=== PATIENT | male | born 1970 | race Caucasian/White ===

== ENCOUNTER 2025-05-25 07:16 | Inpatient (IN) | payer BC ==
[~2025-05-25] VITALS: Ht 177.8 cm; Wt 98.3 kg
--- NOTE | 2025-05-25 07:55 | Physician Documentation ---
History of Present Illness General Chief Complaint: Post-operative complication Stated Complaint: POST OP COMPLICATIONS Time Seen by MD: 07:32 History of Present Illness Initial Comments The patient is a 54-year-old male with no significant past medical history who underwent an umbilical herniorrhaphy two days ago performed by Dr. Dixon. Since that time he has not had a bowel movement in his not passed any gas. His last meal was 6:00 p.m. yesterday. Beginning around 11:00 p.m. he began vomiting and has vomited several times throughout the night. He has crampy abdominal pain, as well. He did have his appendix removed in his 20s. Medication Reconciliation Allergies: Coded Allergies: NSAIDS (Non-Steroidal Anti-Inflamma (Unverified Allergy, Severe, 05/25/25) LIP SWELLING AND HIVES Review of Systems ROS Constitutional: Denies chills, fatigue, fever, weight gain or weight loss. HEENT: Denies hearing loss, sinus pressure or visual changes. Respiratory: Denies cough, shortness of breath or wheezing. Cardiovascular: Denies chest pain, pain while walking (claudication), edema or palpitations. Gastrointestinal: Abdominal pain. Has not passed stool or gas since the surgery. Genitourinary: Denies painful urination (dysuria), excessive amount of urine (polyuria) or urinary frequency. Metabolic/Endocrine: Denies cold intolerance, heat intolerance, excessive thirst (polydipsia) or excessive hunger (polyphagia). Neurological: Denies dizziness, extremity numbness, extremity weakness, headaches, seizures or tremors. Psychiatric: Denies anxiety or depression. Integumentary: Denies breast discharge, breast lump, hives, mole change(s), rash or skin lesion. Musculoskeletal: Denies back pain, joint pain, joint swelling or neck pain. Hematologic: Denies easily bleeding, easily bruises, lymphedema or issues with blood clots. Immunologic: Denies food allergies or seasonal allergies. Physical Exam Physical Exam Vital Signs: Temperature: 98.7, Source: Temporal, Heart Rate: 84, Respiratory Rate: 18, BP: 140/83, Pulse Oximetry: 97, Weight: 98.350 Oxygen Flow Rate: 0 Physical Exam Physical Exam Vitals and nursing note reviewed. Constitutional: General: Patient is awake, alert, oriented x 4 in no acute distress and well appearing. Speech is clear and lucid. Appearance: Normal appearance. Patient is not ill-appearing, toxic-appearing or diaphoretic. HENT: Head: Normocephalic and atraumatic. Mouth/Throat: Mouth: Mucous membranes are moist. Pharynx: Oropharynx is clear. Eyes: General: No scleral icterus. Extraocular Movements: Extraocular movements intact. Pupils: Pupils are equal, round, and reactive to light. Neck: Supple, no Kernig or Brudzinski sign. Cardiovascular: Rate and Rhythm: Normal rate and regular rhythm. Heart sounds: No murmur heard. Pulmonary: Effort: No respiratory distress. Breath sounds: No wheezing, rhonchi or rales. Abdominal: General: There is no distension. Palpations: There is no fluid wave, hepatomegaly or mass. Tenderness: Mild generalized abdominal tenderness. There is no guarding. Musculoskeletal: General: No swelling or deformity. Skin: Coloration: Skin is not jaundiced. Findings: No erythema or rash. Neurological: Mental Status: Patient is alert. Progress Results/Orders Results/Orders Orders - JAMIL VARELA MD Ct Abdomen Pelvis (05/25/25 08:57) Page Hospitalist (05/25/25 11:07) Normal Saline 1000ml (0.9% Sodium Chlori (05/25/25 11:10) Completed Orders - JAMIL VARELA MD Cbc/Diff (05/25/25 07:25) Lipase (05/25/25 07:25) CMP (05/25/25 07:25) Procalcitonin (05/25/25 07:32) Ct Abdomen Pelvis (05/25/25 08:57) Iohexol 300mg/Ml 100ml Inj. (Omnipaque-3 (05/25/25 08:18) Ua W/Microscopic, Cult If Ind (05/25/25 08:20) Ondansetron Inj. (Zofran 4mg/2ml Vial) (05/25/25 08:50) Hydromorphone 0.5 Mg/0.5 Ml/Pf (Dilaudid (05/25/25 08:50) Medications Received in ER Medications (Trade) Dose Ordered Sig/Lida Route PRN Reason Start Time Stop Time Status Last Admin Dose Admin (Zofran 4mg/2ml vial) 4 mg ONCE ONCE IV 05/25/25 08:50 05/25/25 08:51 DC 05/25/25 08:56 4 MG (Dilaudid inj.) 0.5 mg ONCE ONCE IV 05/25/25 08:50 05/25/25 08:51 DC 05/25/25 08:56 0.5 MG Sodium Chloride 1,000 ml @ 150 mls/hr [id number] IV 05/25/25 11:10 05/25/25 11:35 150 MLS/HR Vital Signs 05/25/25 05/25/25 05/25/25 05/25/25 07:22 08:03 08:30 09:33 Temp 98.7 98.7 98.7 Pulse 84 74 68 Resp 18 16 16 B/P (MAP) 140/83 155/89 (111) 137/81 (99) Pulse Ox 97 97 95 O2 Flow Rate 0 0 0 05/25/25 05/25/25 05/25/25 10:25 10:25 11:43 Temp 98.7 98.7 98.7 Pulse 72 72 78 Resp 16 16 18 B/P (MAP) 139/83 (101) 139/83 (101) 144/91 (108) Pulse Ox 98 95 95 O2 Flow Rate 0 0 0 Laboratory Tests Test 05/25/25 08:03 05/25/25 08:20 White Blood Count 9.5 Red Blood Count 5.08 Hemoglobin 15.4 Hematocrit 45.4 Mean Corpuscular Volume 89.4 Mean Corpuscular Hemoglobin 30.3 Mean Corpuscular Hemoglobin Concent 33.9 Red Cell Distribution Width 13.4 Platelet Count 252 Mean Platelet Volume 8.7 Neutrophils (%) (Auto) 77.0 H Lymphocytes (%) (Auto) 17.6 L Monocytes (%) (Auto) 4.4 Eosinophils (%) (Auto) 0.7 Basophils (%) (Auto) 0.3 Neutrophils # (Auto) 7.3 Lymphocytes # (Auto) 1.7 Monocytes # (Auto) 0.4 Eosinophils # (Auto) 0.1 Basophils # (Auto) 0.0 CBC Comment Sodium Level 137 Potassium Level 3.6 Chloride Level 101 Carbon Dioxide Level 28.0 Anion Gap 8 Blood Urea Nitrogen 24 H Creatinine 0.99 Estimated GFR/1.73 m2 78 BUN/Creatinine Ratio 24.2 H Glucose Level 145 H Calcium Level 8.9 Total Bilirubin 0.5 Aspartate Amino Transf (AST/SGOT) 15 Alanine Aminotransferase (ALT/SGPT) 24 Alkaline Phosphatase 63 Total Protein 7.5 Albumin 4.1 Globulin 3.4 Albumin/Globulin Ratio 1.2 Lipase 23 Procalcitonin < 0.05 Chemistry Comments Urine Specimen Description Voided Urine Color Yellow Urine Clarity Clear Urine pH 5.5 Urine Specific [place] >=1.030 Urine Protein Trace Urine Glucose (UA) Negative Urine Ketones Negative Urine Occult Blood Negative Urine Nitrite Negative Urine Bilirubin Negative Urine Urobilinogen 0.2 Urine Leukocyte Esterase Negative Urine RBC 0-2 Urine WBC 0-4 Urine Squamous Epithelial Cells Few Urine Calcium Oxalate Crystals 3+ Urine Bacteria Few Urine Coarse Granular Casts 0-3 Urine Mucus Moderate Urine Culture Indicated Not ind Volume Urine Centrifuged 10 ml Urine Comment Medical Decision Making Findings This 54-year-old man presented two days after periumbilical herniorrhaphy with abdominal pain/bloating with nausea and vomiting. Findings on CT scan are consistent with ileus. The stomach itself is decompressed. I reviewed this with Dr. Dixon (11:00 a.m.) and we concluded that an NG tube is not needed at the present time. I am going to start maintenance fluids and get him admitted. Departure Disposition: ADMITTED INPATIENT Admitted to Inpatient Unit: to hospitalist Admission Level of Care: Med/Surg Impression: Primary Impression: Postoperative ileus Condition: Stable Referrals: NO PRIMARY CARE PROVIDER (PCP) Signature Scribe Signature: . Attestation: JAMIL GARZA MD May 25, 2025 07:55
[2025-05-25 08:17] LABS: MEAN PLATELET VOLUME 8.7 FL (7.4-10.4); RED CELL DISTRIBUTION WIDTH 13.4 % (11.5-14.5)
[2025-05-25] MEDS ORDERED: iohexol 300mg/ml 100ml inj. ONE (08:18)
[2025-05-25 08:36] LABS: CREATININE 0.99 MG/DL (0.60-1.10); TOTAL CARBON DIOXIDE 28.0 MMOL/L (24-32); eCRCL 86 ML/MIN; eGFR 78 ML/MIN
[2025-05-25 08:39] LABS: LEUKOCYTE ESTERASE ,URINE NEGATIVE (Neg); NITRITES, URINE NEGATIVE (Neg); OCCULT BLOOD,URINE NEGATIVE (Neg)
[2025-05-25 08:45] LABS: UA COLLECTION TYPE VOIDED
[2025-05-25 08:47] LABS: MUCUS STRANDS MODERATE /LPF (Neg)
[2025-05-25 08:50] LABS: SQUAMOUS EPITHELIAL CELL,UR FEW /LPF (FEW)
[2025-05-25 08:51] LABS: CAL OXALATE CRYSTALS 3+ /HPF (NEGATIVE); COARSE GRANULAR CAST 0-3 /LPF (NEGATIVE)
[2025-05-25] MEDS: HYDROmorphone inj. 0.5 MG/0.5 ML DISP.SYRIN IV ONE (08:56)
[2025-05-25] MEDS: ondansetron/PF 4mg/2ml inj IV ONE (08:56)
--- NOTE | 2025-05-25 09:39 | RADIOLOGY REPORT ---
CLINICAL INFORMATION: Small-bowel obstruction. TECHNIQUE: Axial CT images of the abdomen and pelvis were obtained after the uneventful administration of 100 mL Omnipaque 300 IV contrast. Coronal and sagittal reformatted images were obtained, reviewed, and stored. All CT scans at this medical facility are performed using dose modulation techniques as appropriate to a performed exam including the following: Automated exposure control was utilized; adjustment of the MA and/or KV according to patient size; and use of iterative reconstruction technique. CTDIvol = 35.03 mGy DLP = 2115.23 mGy-cm COMPARISON: None FINDINGS: Lung bases: Atelectasis in the lower lobes bilaterally. Liver: Unremarkable. No abnormal density or focal lesion. Biliary: No calcified gallstones or biliary ductal dilatation. Spleen: Low-density lesion with peripheral enhancement in the posterior spleen measures up to 1.3 cm in greatest dimension, possible hemangioma, although not well characterized on this single phase of contrast. Pancreas: Unremarkable. No inflammatory changes, ductal dilatation, or mass identified. Adrenal glands: Unremarkable. No mass. Kidneys: 2.1 cm cyst in the upper pole of the right kidney. Aorta/Vascular: Scattered mild atherosclerotic calcification. No abdominal aortic aneurysm. Retroperitoneum: No mass or lymphadenopathy. Bowel/mesentery: Nonspecific nondilated fluid-filled small bowel loops. No small bowel obstruction. Appendix is not visualized. There is moderate distention of the colon with moderate to large amount of stool in the cecum and ascending colon and gaseous distention of the transverse colon, with liquid stool in the rectosigmoid colon. No evidence of mechanical colonic obstruction. Pelvic organs: Grossly unremarkable. Bladder: Grossly unremarkable. Abdominal wall: There are small locules of gas in the ventral abdominal wall near the level of the umbilicus and small locule of gas deep to the superficial fascia of the ventral abdominal wall near the level of the umbilicus, may be sequelae of recent intervention or trauma in this location. Mild stranding near the umbilicus. No free air elsewhere in the abdomen or pelvis. Bones: No acute fracture or focal intraosseous lesion. IMPRESSION: 1. Locules of gas in the ventral abdominal wall near the umbilicus with tiny locule of gas deep to the ventral abdominal wall, may be sequelae of recent intervention or trauma. Correlate with clinical findings and recent surgical history. 2. Nonspecific nondilated fluid-filled small bowel loops. Possible ileus or enteritis in the appropriate clinical setting. No small bowel obstruction. 3. Colonic distention with moderate to large amount of stool in the cecum and ascending colon, gaseous distention of the transverse colon, and liquid stool in the rectosigmoid colon, possibly due to ileus. No findings are seen to suggest mechanical obstruction. 4. Probable hemangioma in the spleen. Not optimally evaluated on this single phase of contrast. Correlate with clinical findings. If clinically indicated, nonemergent MRI could be considered.
[2025-05-25] MEDS: normal saline 1000ml 1,000 ML IV SCH ×2 (11:35→19:18)
[2025-05-25] MEDS ORDERED: magnesium sulf-water 4G/100mL 100 ML IV PRN (17:10)
[2025-05-25] MEDS ORDERED: potassium Cl 40MEQ/1/2NS 520ml 520 ML IV PRN (17:10)
[2025-05-25] MEDS ORDERED: magnesium sulf-water 2g/50mL 50 ML IV PRN (17:10)
[2025-05-25] MEDS ORDERED: mag hydrox/Alum hydrox/simeth 30ml oral suspension PO PRN (17:10)
[2025-05-25] MEDS ORDERED: potassium Cl 20 mEq SR tablet PO PRN ×2 (17:10)
[2025-05-25] MEDS ORDERED: magnesium Cl slow-release 64mg tablet PO PRN (17:10)
--- NOTE | 2025-05-25 18:34 | HISTORY AND PHYSICAL-Residence ---
History & Physical Providers to CC Resident Creating Document: KUNAL CORLEY, RES CC: NANCY RODRÍGUEZ MD ~ History of Present Illness Reason for Admit\Complaint: Abdominal distention, nausea vomitus History of Present Illness A 54-year-old male with recent history of umbilical hernia repair two days ago at [facility] with Dr. Dixon presented to the ED after review with Dr. Dixon about vomitings, abdominal distention and unable to pass bowel movement. Patient underwent umbilical hernia repair on Wednesday and was discharged the same day. Patient was fine on Wednesday and was able to rest with pain medications (Percocet) every 4-5 hours that day. The next day on , patient's abdomen was more bloated started to have worst heartburn, did not have a bowel movement. Patient took MiraLax that did not work. Patient did not have appetite and ate very little, started to vomitings the entire day multiple episodes greenish yellow liquid. Patient took Dulcolax which did not work as well. Patient was awake all night with episodes of vomitings and abdominal cramps. Abdominal pain was cramping in type, 10/10 in severity, umbilical in location, nonradiating, relieved with pain medications. Patient was not passing flatus since the time of surgery. Patient also had three enemas done at home that did not work. Patient's called Dr. Dixon this morning who recommended to come back to the ER. Colonoscopy done about 1 or 2 years ago was completely normal. Patient had excessive belching and dizziness. In the ER, patient had two watery bowel movements in started to pass flatus. Allergies: Coded Allergies: NSAIDS (Non-Steroidal Anti-Inflamma (Unverified Allergy, Severe, 05/25/25) LIP SWELLING AND HIVES Past Medical History Past Medical History None Past Surgical History Surgical History Comment Appendectomy Past Social History Social History Comment Lives at home with family Primary care: Celestina stanton Surgeon: Dr. Dixon Drinks beer occasionally, denies smoking, marijuana or illicit drugs Works as printing bindery assistant public work director for the [employer] ROS Constitutional: No fever, chills, dizziness, weight gain or loss Eyes: No pain, erythema, discharge, blurring of vision ENT: No sore throat, epistaxis, tinnitus Cardiovascular: No Shortness of breath. Chest pressure, chest discomfort, palpitations, syncope, lower extremity edema, paroxysmal nocturnal dyspnea Respiratory: No Shortness of breath and cough present, No hemoptysis Gastrointestinal: Nausea vomitings, abdominal distention, loss of appetite Musculoskeletal: No edema Integumentary: No change in skin, hair, nails. No swelling, bruising, abrasions Neurologic: No headache, neck pain, numbness or tingling of the extremities, weakness Psychiatric: No delusions, depression, loss of interest in normal activity or change in sleep pattern, hallucinations, suicidal ideations Endocrine: No fatigue, weakness, polydipsia, polyuria, change in appetite, heat or cold intolerance, sweating, dry skin Exam Vitals: Vital Signs Date Time Temp Pulse Resp B/P (MAP) Pulse Ox O2 Delivery O2 Flow Rate FiO2 05/25/25 16:10 98.7 72 16 149/86 (107) 95 0 General: General: Moderately obese middle-aged man, Alert, awake, oriented, not in acute distress HEENT: PERRLA, no icterus, pallor, lymphadenopathy, carotid bruit Respiratory system: Bilateral vesicular breath sounds heard, no adventitious breath sounds CVS: S1-S2 heard, no murmurs/rubs/gallop GI: Generalized tenderness, surgical incision intact with no infection/erythema, present in surgical dressing. Soft, no organomegaly, no guarding/rigidity, bowel sounds present Neuro: No focal neurological deficits present Extremities: No edema cyanosis clubbing/deformities Skin: Warm and dry Diagnostic Data Last Recorded Lab Results: 05/25/25 0803 05/25/25 0803 Advance Care Planning Advanced Care plannin - 30 Minutes (I spent 20 minutes discussing various resuscitative measures and the patient decided to be full code) Additional Plan Assessment: 54-year-old male with recent history of umbilical hernia repair done two days ago at [facility] presented to the ED in view of abdominal distention, nausea and vomitings. Patient is admitted for the evaluation management of postop ileus. Plan: Postoperative ileus Umbilical hernia repair on 05/23/2025 CT abdomen: Locules of gas in the ventral abdominal wall near the umbilicus with tiny locule of gas deep to the ventral abdominal wall, may be sequelae of recent intervention. Nonspecific nondilated fluid-filled small bowel loops. Possible ileus or enteritis in the appropriate clinical setting. No small bowel obstruction.Colonic distention with moderate to large amount of stool in the cecum and ascending colon, gaseous distention of the transverse colon, and liquid stool in the rectosigmoid colon, possibly due to ileus. IV fluids at 150 cc/hour Dr. Dixon consulted, awaiting recommendations. Does not require NG tube per the surgeon. Appreciate recommendations IV Zofran p.r.n. for nausea and vomiting Management per the surgeon NPO Incidental possible spleen hemangioma Asymptomatic Outpatient follow up Code status: Full code Diet: NPO DVT prophylaxis: SCD Disposition: Admit to ortho, follow up with Dr. Dixon's recommendations Kunal Corley MD Internal Medicine, PGY 2 Date of Service: May 25, 2025 Billing Provider: NANCY RODRÍGUEZ MD, SIVA, RES May 25, 2025 18:34
[2025-05-25] MEDS: acetaminophen 1,000mg/100ml IV 100 ML IV ONE (19:18)
[2025-05-25] MEDS: ondansetron/PF 4mg/2ml inj IV PRN (19:18)
[2025-05-25] MEDS: docusate sod 100mg capsule PO SCH (19:26)
[2025-05-25] MEDS: K and/or MAG REPLACEMENT MC SCH (19:27)
--- NOTE | 2025-05-25 21:46 | PROGRESS NOTE ---
Progress Note Dictate Providers to CC CC: NIESHA BOLIVAR MD ~ Progress Note: Subsequent surgical care on a 54-year-old gentleman who is postoperative day 2. Status post robotic assisted, laparoscopic umbilical hernia repair with mesh This was performed at He presented to the emergency room this morning, obstipated with a concerned for possible small-bowel obstruction CT scan was more consistent with ileus and no obstructive pattern was noted Recommendations: -continue monitoring for progression or resolution of ileus Maintain NPO except sips and ice chips until passing gas Mesh encourage ambulation (patient currently walking laps at this moment) Aggressively avoid narcotics prioritizing non opioid analgesics such as Tylenol Continue supportive care with IV fluids and electrolyte corrections as indicated Appreciate assistance in the management of this patient by the medical service Antibiotic Ordered?: No Objective Vitals Vital Signs Date Time Temp Pulse Resp B/P (MAP) Pulse Ox O2 Delivery O2 Flow Rate FiO2 05/25/25 16:10 98.7 72 16 149/86 (107) 95 0 Lab Results: 05/25/25 0803 05/25/25 0803 NIESHA BOLIVAR MD May 25, 2025 21:46
[2025-05-25 22:00] VITALS: BP 147/78; PULSE 73; RESP 20; TEMP 97.8; O2SAT 98
[2025-05-25] MEDS: methylnaltrexone br 12mg/0.6ml inj***SubQ only SQ ONE (22:02)
[2025-05-26] MEDS: acetaminophen 1,000mg/100ml IV 100 ML IV ONE (04:19)
[2025-05-26 05:58] LABS: MEAN PLATELET VOLUME 8.4 FL (7.4-10.4); RED CELL DISTRIBUTION WIDTH 13.3 % (11.5-14.5)
[2025-05-26 06:00] VITALS: BP 127/85; PULSE 63; RESP 20; TEMP 97.5; O2SAT 96
[2025-05-26 06:17] LABS: CREATININE 1.11 MG/DL (0.60-1.10); TOTAL CARBON DIOXIDE 28.5 MMOL/L (24-32); eCRCL 77 ML/MIN; eGFR 69 ML/MIN
[2025-05-26 08:00] VITALS: RESP 18; O2SAT 99
[2025-05-26 10:00] VITALS: BP 110/70; PULSE 61; RESP 16; TEMP 97.2; O2SAT 95
[2025-05-26] MEDS: normal saline 1000ml 1,000 ML IV SCH (11:05)
--- NOTE | 2025-05-26 13:44 | PROGRESS NOTE ---
Progress Note ID Providers to CC ~ Progress Note Progress Note: complains of fullness/vss/abd-distended a/p 1. postop ileus/add ARIA Lemus MD May 26, 2025 13:44
[2025-05-26] MEDS: metoclopramide 5 mg/ml inj IV SCH (14:28)
[2025-05-26] MEDS: acetaminophen 1,000mg/100ml IV 100 ML IV PRN (14:44)
[2025-05-26 18:00] VITALS: BP 115/74; PULSE 60; RESP 18; TEMP 97.4; O2SAT 95
[2025-05-26] MEDS: magnesium hydroxide 30ml (MOM) UD suspension PO PRN (19:37)
--- NOTE | 2025-05-26 19:39 | PROGRESS NOTE- Residence ---
Progress Note - Resident Providers to CC Resident Creating Document: JENNIFER GARCIA RES ~ Antibiotic Timeout Antibiotic Ordered?: No Subjective Patient seen and examined today. He is comfortably resting in the bed. He had a bowel movement yesterday and stated that he was passing gas yesterday. Did not have any bowel movement today. Full liquid diet was started by the surgeon but he complained of abdominal pain when he tried to drink. No other concerns Objective Vital Signs Date Time Temp Pulse Resp B/P (MAP) Pulse Ox O2 Delivery O2 Flow Rate FiO2 05/26/25 10:00 97.2 61 16 110/70 (83) 95 Room Air 05/25/25 16:10 0 Result Diagram: 05/26/25 0510 05/26/25 0510 General: Alert and oriented x 4 HEENT: Normocephalic and atraumatic. Pupils equal round and reactive to light and accommodation. Extraocular movements intact. Oral and nasal mucosa moist Neck: Trachea is in midline. No masses or JVD Lungs: Bilateral normal breath sounds. No crackles, rhonchi or wheezes Heart: Regular rate and rhythm. S1-S2 normal. No rubs or murmurs Abdomen: Dressing in place in the umbilical region and left lumbar region. Soft, and [id number] distended. Nontender. Normoactive bowel sounds SEARCH ENGINE OPTIMIZER: No gross sensory or motor abnormalities Extremities: No cyanosis, clubbing or edema Skin: Warm and dry Assessment Assessment 54-year-old male with recent history of umbilical hernia repair done two days ago at [facility] presented to the ED in view of abdominal distention, nausea and vomitings. Patient is admitted for the evaluation management of postop ileus. Plan Plan Postoperative ileus Umbilical hernia repair on 05/23/2025 CT abdomen: Locules of gas in the ventral abdominal wall near the umbilicus with tiny locule of gas deep to the ventral abdominal wall, may be sequelae of recent intervention. Nonspecific nondilated fluid-filled small bowel loops. Possible ileus or enteritis in the appropriate clinical setting. No small bowel obstruction.Colonic distention with moderate to large amount of stool in the cecum and ascending colon, gaseous distention of the transverse colon, and liquid stool in the rectosigmoid colon, possibly due to ileus. Mentioned that he took [place] 5/325 mg 4 times a day after the surgery Surgeon did not recommend any NG tube Received Relistor yesterday and had a bowel movement Started by Reglan 10 mg IV q.6h by the surgeon IV Zofran p.r.n. for nausea and vomiting Management per the surgeon On full liquids by the surgeon Started normal saline at 100 cc/hour Will follow surgeon's recommendations Incidental possible spleen hemangioma Asymptomatic Outpatient follow up Diet: Full liquid diet as tolerated DVT prophylaxis: Lovenox 40 mg subcutaneous daily Jennifer Garcia MD Internal Medicine Resident, PGY 3 Date of Service: May 26, 2025 Billing Provider: NANCY RODRÍGUEZ MD, MANOJNA RES May 26, 2025 19:39
[2025-05-26 20:00] VITALS: RESP 20; O2SAT 98
[2025-05-26] MEDS: enoxaparin 40mg/0.4ml syringe SUBCUT SCH (21:22)
[2025-05-26 22:00] VITALS: BP 144/73; PULSE 60; RESP 19; TEMP 97.7; O2SAT 95
[2025-05-27 05:00] VITALS: BP 102/56; PULSE 59; RESP 15; TEMP 98.6; O2SAT 97
[2025-05-27 05:59] LABS: CREATININE 1.00 MG/DL (0.60-1.10); TOTAL CARBON DIOXIDE 26.8 MMOL/L (24-32); eCRCL 85 ML/MIN; eGFR 77 ML/MIN
[2025-05-27 06:04] LABS: MEAN PLATELET VOLUME 8.4 FL (7.4-10.4); RED CELL DISTRIBUTION WIDTH 12.8 % (11.5-14.5)
[2025-05-27 08:00] VITALS: RESP 15; O2SAT 97
[2025-05-27] MEDS ORDERED: ACET-1008 PO ×2 (10:37→10:38)
[2025-05-27] MEDS ORDERED: ONDA-243 PO (10:39)
[2025-05-27] MEDS ORDERED: METO10TA3 PO (10:39)
--- NOTE | 2025-05-27 14:16 | DISCHARGE SUMMARY-Residence ---
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 Dixon (surgery) Complications: None Condition on DC: Stable New Medications: Metoclopramide Hcl* (Metoclopramide Hcl*) 10 Mg Tablet 1 TAB PO Q6H for 5 Days, #20 TAB ONDANSETRON ODT 4mg tablet (Ondansetron Odt) 4 Mg Tab.rapdis 1 TAB PO Q6H PRN PRN for nausea/vomiting for 4 Days, #16 TAB 0 Refills Continued Medications: Acetaminophen (Tylenol) 325 Mg Tablet 1 TAB PO Q6H PRN for pain or fever for 5 Days, #20 TAB Discontinued Medications: Acetaminophen (Tylenol) 325 Mg Tablet 1 TAB PO Q4HPRN PRN for pain or fever for 5 Days, #40 TAB Discharge Summary: A 54-year-old male with PMH of recent surgery for umbilical hernia repair at [facility] two days prior to the admission came to the hospital today in view of abdominal pain, nausea vomitings, unable to pass gas and have bowel movements. Patient tried enema, MiraLax, Dulcolax that did not improve his symptoms. Patient endorses using about [place] every 6 hours right after the surgery at home. Patient's abdomen was completely distended. Patient's consulted Dr. Dixon was the surgeon, was recommended to come to the ER at [facility]. Per the surgeon's recommendations, NG tube was not required. patient's started to have bowel movements but was started on Reglan for better motility, strict avoidance of opioids was placed. Patient has started to feel better and had about 3-4 bowel movements after Reglan that gradually improved abdominal distention, Zofran held with nausea and vomitings. Patient was able to tolerate full liquid diet with improving abdominal distention. In view of all the above, surgery cleared the patient for discharge. Patient is hemodynamically stable for discharge. Physical examination at discharge: General: Alert and oriented x 4 HEENT: Normocephalic and atraumatic. Pupils equal round and reactive to light and accommodation. Extraocular movements intact. Oral and nasal mucosa moist Neck: Trachea is in midline. No masses or JVD Lungs: Bilateral normal breath sounds. No crackles, rhonchi or wheezes Heart: Regular rate and rhythm. S1-S2 normal. No rubs or murmurs Abdomen: Dressing in place in the umbilical region and left lumbar region. Soft, and vmbv-br-gopwmtbzej distended. Nontender. Normoactive bowel sounds DESIGN SPECIALIST: No gross sensory or motor abnormalities Extremities: No cyanosis, clubbing or edema Skin: Warm and dry Labs at discharge: WBC: 7.9, H/H: 13.5/38.7, platelet count: 213 Sodium: 139, potassium: 3.7 BUN: 14, creatinine: 1 Imaging: CT abdomen pelvis: Locules of gas in the ventral abdominal wall near the umbilicus with tiny locule of gas deep to the ventral abdominal wall, may be sequelae of recent intervention or trauma. Correlate with clinical findings and recent surgical history. Nonspecific nondilated fluid-filled small bowel loops. Possible ileus or enteritis in the appropriate clinical setting. No small bowel obstruction. Colonic distention with moderate to large amount of stool in the cecum and ascending colon, gaseous distention of the transverse colon, and liquid stool in the rectosigmoid colon, possibly due to ileus. No findings are seen to suggest mechanical obstruction. Probable hemangioma in the spleen Discharge medications can be found above patient is discharged home with the following recommendations: Follow up with primary care within two weeks of discharge Follow up with Dr. Dixon within two weeks of discharge. Please consume low-fiber diet until you feel back to normal. We prescribed you Reglan for five days, take it p.r.n. until you have free bowel movements. Please do not take any opioids for pain, can take Tylenol p.r.n. for pain. Please follow up with a splenic hemangioma that we found incidentally as outpatient. Return to ER in view of sudden onset of chest pain, abdominal pain, nausea, constipation, vomitings. *Problems/Diagnosis: (1) Postoperative ileus Status: Acute Total Time Spent on D/C: > 30 Minutes Date of Service: May 27, 2025 Billing Provider: NANCY RODRÍGUEZ MD, SIVA, RES May 27, 2025 14:16
--- NOTE | 2025-05-27 17:49 | PROGRESS NOTE ---
Progress Note ID Providers to CC ~ Progress Note Progress Note: DOING WELL/DC ARIA SHETTY MD May 27, 2025 17:49
== END 2025-05-27 11:28 | disposition home or self-care (01) | DRG 394 ==
LOC: ER 07:17 → ED HOLD 12:02 → ORTHO 4S 17:40
PROVIDERS: ADMIT Family Medicine; ATTEND Family Medicine
PROC: BW211ZZ Computerized Tomography (CT Scan) of Abdomen and Pelvis using Low Osmolar Contrast (ICD-10-PCS; principal; 2025-05-25)
DX: K91.89 Other postprocedural complications and disorders of digestive system (principal); K56.7 Ileus, unspecified; D18.09 Hemangioma of other sites; T40.2X5A Adverse effect of other opioids, initial encounter; Y83.9 Surgical procedure, unspecified as the cause of abnormal reaction of the patient, or of later complication, without mention of misadventure at the time of the procedure; Y92.89 Other specified places as the place of occurrence of the external cause
CPT/HCPCS: 36415; 74177; 80053; 81001; 83690; 83735; 84145; 85025; 87081; 96372; 96374; 96375; 99285; G0378; J0131; J1171; J1650; J2212; J2405; J2765; J7030; Q9967